=== PATIENT | female | born 1935 | race Caucasian/White ===

== ENCOUNTER 2016-02-25 12:08 | Observation (INO) | payer MEDICARE, BC ==
[~2016-02-25] VITALS: Ht 162.6 cm; Wt 86.2 kg
[2016-02-25] MEDS ORDERED: OPTIRAY 350 100 ML VIAL HMH IV ONE (12:09)
[2016-02-25] MEDS ORDERED: SOD BICARB 8.4% VIAL 50 ML IV ONE (18:10)
[2016-02-25] MEDS ORDERED: LIDOCAINE 2% 20 ML INTRADERM ONE (18:10)
[2016-02-25] MEDS ORDERED: MORPHINE 2 MG/ML SYR IV PRN (19:00)
[2016-02-25 19:43] VITALS: BMI 32.6
[2016-02-25 19:44] VITALS: BP_SYST 102; RESP 20; TEMP 96.3
[2016-02-25 21:47] VITALS: Ht 162.6 cm; Wt 86.2 kg
[2016-02-25 22:55] VITALS: BP_SYST 114; RESP 20; TEMP 98.2
[2016-02-25] MEDS: ACETAMINOPHEN 325 MG TAB PO PRN (23:07)
[2016-02-26] VITALS (7 sets, daily range): BP systolic 114–148; RESP 18–20; TEMP 97.3–98.3
[2016-02-26] MEDS ORDERED: PANTOPRAZOLE 40 MG TAB PO SCH (07:00)
[2016-02-26] MEDS ORDERED: SALINE FLUSH 10 ML FLUSH SCH (08:00)
[2016-02-26] MEDS ORDERED: SALINE FLUSH 10 ML FLUSH PRN (08:30)
[2016-02-26] MEDS: ACETAMINOPHEN 325 MG TAB PO PRN (15:20)
[2016-02-27] MEDS ORDERED: SODIUM CHLORIDE 0.9% FLUSH BAG 500 ML IV SCH (06:00)
== END 2016-02-26 17:23 | disposition home or self-care (01) ==
LOC: ENRESERVDT → ENRESERVTM → ER 12:08 → EMR 18:09 → ENPENDDIS 18:09 → 4NT 19:27
PROVIDERS: ADMIT Family Medicine; ATTEND Family Medicine
CPT/HCPCS: 49083 ×2; 74177 ×2; 80053 ×2; 83615 ×2; 85025 ×2; 85610 ×2; 85730 ×2; 88108 ×2; 88341 ×2; 88342 ×2; 89051 ×2; 97799; 99219; 99255; 99284; C1729; G0378; Q9967